=== PATIENT | female | born 1995 | race Caucasian/White ===

== ENCOUNTER 2020-09-15 12:54 | Emergency (ER) | payer BC, SELFPAY ==
--- NOTE | ~2020-09-15 | US_ITS ---
EXAMINATION: US OB <=14 wk fetus w TV DATE: 09/15/2020 14:45 INDICATION: Right lower quadrant abdominal pain. TECHNIQUE: Real-time transabdominal and transvaginal pelvic ultrasound was performed. COMPARISON: None. FINDINGS: TRANSABDOMINAL ULTRASOUND: The uterus measures 8.5 x 3.4 x 4.7 cm. TRANSVAGINAL ULTRASOUND: The endometrial complex measures 6 mm in thickness. There is no visible intr auterine gestational sac. The right ovary measures 2.1 x 1.6 x 1.9 cm. There is a 4.8 x 3.7 x 5.5 cm heterogeneous mass in right adnexa. The left ovary measures 2.0 x 1.3 x 1.3 cm. There is trace free f luid in the pelvis. IMPRESSION: 1. No visible intrauterine gestational sac, which may be normal in early . Spontaneous abor tion and ectopic are not excluded. Serial beta-hCGs are recommended. 2. 5.5 cm nonspecific mass in right adnexa. The differential diagnosis includes ectopic , he morrhagic cyst, pedunculated fibroid, and neoplasm. Reviewed, dictated and finalized at location A. PLANNER IMPRESSION: 1. No visible intrauterine gestational sac, which may be normal in early pregn charbel. Spontaneous and ectopic are not excluded. Serial beta- hCGs are recommended. 2. 5.5 cm nonspecific mass in right adnexa. The differential diagnosis includes ectopic , hemorrhagic cyst, pedunculated fibroid, and neoplasm.
--- NOTE | 2020-09-15 13:00 | ED.ABDPAIN ---
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 Patient states that she had a normal last menstrual period September 02, then started to have vaginal bleeding again on 09/09. Patient then with recurrent, at times severe and sharp right lower pelvic abdominal pain. No back pain. No syncope, lightheadedness or dizziness. Patient is reporting bleeding that is heavier than her normal.. She is not soaking through greater than 1 pad an hour. No fever, nausea or vomiting. She does report some dysuria. Patient states she had an ultrasound at [facility] yesterday which did not not show any evidence of an intrauterine . She states her beta hCG from her visit yesterday was 159. Related Data Allergies Allergy/AdvReac Type Severity Reaction Status Date / Time No Known Allergies Allergy Verified 09/15/20 12:55 Review of Systems Review of Systems: Narrative: CONSTITUTIONAL: Denies fever, chills, or sweats. EYES: Denies visual changes, redness, or discharge. ENT: Denies rhinorrhea, congestion, sore throat, or otalgia. CARDIOVASCULAR: Denies chest pain, palpitations, or edema. RESPIRATORY: Denies cough or dyspnea. GASTROINTESTINAL: Reports lower pelvic pain without nausea, vomiting or diarrhea GENITOURINARY: Reports dysuria and vaginal bleeding SKIN: Denies rash or itching. MUSCULOSKELETAL: Denies back pain, joint pain, or myalgia. NEUROLOGIC: Denies headache, numbness, or weakness. [facility] Past Medical History Medical History (Updated 09/15/20 @ 15:36 by Rubia Pacheco MD) No pertinent past medical history Surgical History Surgical History (Updated 09/15/20 @ 13:42 by Rubia Pacheco MD) No pertinent past surgical history Social History Social History (Updated 09/15/20 @ 13:43 by Rubia Pacheco MD) Smoking status: Never smoker Alcohol intake: never Substance use: never Living arrangements: with family Gender identity (if verbalized by the patient): Female Exam Narrative: Exam Narrative: GENERAL: Awake, alert, conversant HEAD: Normocephalic, atraumatic. EYES: PERRLA and EOMI. ENT: Nares clear, no rhinorrhea or epistaxis. Mucous membranes moist. NECK: Supple. CHEST: No respiratory distress, breathing even and non labored HEART: Regular rate, sinus rhythm ABDOMEN: Obese abdomen, Non distended, tender to palpation in right lower pelvic area, no guarding, no rebound : Labia majora and minora normal without lesions. Vagina with blood present. No brisk bleeding. No cervical motion tenderness. No adnexal tenderness or fullness bilaterally. No Discharge present. EXTREMITIES: Normal range of motion. No edema. SKIN: Warm, dry, no rash. NEURO:No focal deficits. Alert and oriented x3 Course Vital Signs Vital signs: Vital Signs Temperature 36.6 C 09/15/20 13:15 Pulse Rate 110 H 09/15/20 13:15 Respiratory Rate 20 09/15/20 13:15 Blood Pressure 164/81 H 09/15/20 13:15 Pulse Oximetry 98 09/15/20 13:15 Temperature 36.6 C 09/15/20 13:15 Pulse Rate 78 09/15/20 15:15 Respiratory Rate 22 H 09/15/20 15:15 Blood Pressure 131/56 L 09/15/20 15:15 Pulse Oximetry 98 09/15/20 15:15 MDM - Abdominal Pain MDM Narrative Medical decision making narrative: Patient presented for evaluation of vaginal bleeding in the setting of a positive test at outside hospital. At the time of assessment, vital signs are stable. No brisk bleeding on exam. Patient is intermittently having pain. Laboratory results show mild anemia. No prev
[2020-09-15 13:15] VITALS: BP 164/81; PULSE 110; RESP 20; TEMP 36.6; O2SAT 98
[2020-09-15 13:40] LABS: Add Urine Microscopic? YES; Appearance Urine Clear (Clear); Bacteria Urine 2+ /hpf; Bilirubin Urine Negative (Negative); Blood Urine 3+ (Negative); Color Urine Red (Yellow); Glucose Urine UA Negative (Negative); Ketones Urine Negative (Negative); Leukocyte Esterase Ur Negative LEU/UL (Negative); Nitrate Urine Negative (Negative); Protein Urine 2+ mg/dL (Negative); RBC Urine 21-50 /hpf (0-2); Specific Grav Ur 1.008 (1.001-1.035); Squamous Epithelial Cell Urine Many /hpf (Few); Urobilinogen Urine Negative mg/dL (<2.0)
[2020-09-15 13:43] VITALS: BP 132/64; PULSE 75; RESP 95; O2SAT 23
[2020-09-15 14:20] LABS: Basophils Percent Auto 0.2 % (0.2-1.2); Eosinophils Percent Auto 0.1 % (0-4.4); Hematocrit 34.3 % (37.0-47.0); Immature Granulocyte Absolute 0.04 K/mm3 (0.00-0.031); Immature Granulocyte Percent A 0.4 % (0-0.5); Lymphocytes Absolute Auto 1.71 K/mm3 (0.9-3.2); Lymphocytes Percent Auto 17.2 % (18.3-44.2); Mean Corpuscular HGB Conc 32.1 g/dl (32-36); Mean Corpuscular Hemoglobin 28.1 pg (26-34); Mean Corpuscular Volume 87.7 fl (80-100); Mean Platelet Volume 9.4 fl (7.4-10.4); Monocytes Absolute Auto 0.4 K/mm3 (0.1-0.6); Monocytes Percent Auto 4.2 % (2.6-8.5); Neutrophils Absolute Auto 7.7 K/mm3 (1.3-6.7); Neutrophils Percent Auto 77.9 % (45.5-73.1); Platelet Count Result 284 k/mm3 (150-375); Red Blood Count 3.91 M/mm3 (4.2-5.4); Red Cell Distribution Width 13.5 % (11.5-14.5); White Blood Count 9.9 K/mm3 (4.5-10.0)
[2020-09-15 14:33] LABS: Alanine Aminotransferase 25 U/L (4-35); Albumin Level 3.8 g/dL (3.5-5.1); Alkaline Phosphatase 76 U/L (38-126); Anion Gap 7 mmol/L (8-16); Aspartate Amino Transferase 26 U/L (14-36); Bilirubin,Total 0.3 mg/dL (0.2-1.3); Blood Urea Nitrogen 7 mg/dL (7-17); Calcium 8.7 mg/dL (8.4-10.2); Carbon Dioxide 28 mmol/L (22-30); Chloride 102 mmol/L (98-107); Estimated CRCL calculation 201 ml/min; Estimated Glomerular Filt Rate > 60; Glucose 100 mg/dL (65-105); Lipase 54 U/L (23-300); Potassium 3.7 mmol/L (3.4-5.0); Sodium 137 mmol/L (137-145)
[2020-09-15 14:50] LABS: Beta HCG Quantitative 113.97 mIU/ML
[2020-09-15 15:15] VITALS: BP 131/56; PULSE 78; RESP 22; O2SAT 98
--- NOTE | 2020-09-15 16:14 | PC.NURSE ---
EDP at bedside discussing POC.
[2020-09-15 16:16] VITALS: BP 136/72; PULSE 90; RESP 21; O2SAT 100
[2020-09-15] MEDS: METHOTREXATE SODIUM/PF 50 MG/2 ML VIAL 60 MG IM ×2 (16:50→16:57)
[2020-09-15 17:27] VITALS: BP 141/89; PULSE 72; RESP 15; O2SAT 97
== END 2020-09-15 17:29 | disposition home or self-care (01) ==
PROVIDERS: Emergency Provider Emergency Medicine
DX: O03.4 Incomplete spontaneous abortion without complication (principal); N94.89 Other specified conditions associated with female genital organs and menstrual cycle
CPT/HCPCS: 36415; 76801; 76817; 80053; 81001; 81025; 83690; 84702; 85025; 85461; 87077; 87086; 87088; 87186; 96372; 99284; J9260